=== PATIENT | male | born 1975 | race Two or more races ===

== ENCOUNTER 2019-01-01 08:19 | Emergency (ER) | payer OTHER ==
[~2019-01-01] VITALS: Ht 185.4 cm; Wt 79.4 kg
[2019-01-01] MEDS ORDERED: TETRACAINE 0.5% OPHTH SOLUTION 4ML BOTTLE. ONE (08:44)
[2019-01-01] MEDS ORDERED: FLUORESCEIN OPHTH TEST STRIP. ONE (08:44)
--- NOTE | 2019-01-01 09:00 | PHYS DOC ---
Adult General Chief Complaint Chief Complaint: EYE PROBLEMS HPI HPI Patient is a 43 year old male presents to ED complaining of left eye injury times one day ago. Patient states yesterday he was hit in the eye with a metal karina. Describes the pain as sharp. Rates the pain as 5/10. Feels like their is something in his eye. Associated symptoms include a little blurred vision. Patient does not wear contacts or glasses. Denies swelling, n/v, headache, fever, weakness, dizziness. Review of Systems Review of Systems Constitutional: Denies fever or chills [] Eyes: Complains of left eye redness and FB sensation. Denies change in visual acuity, redness, or eye pain [] HENT: Denies nasal congestion or sore throat [] Respiratory: Denies cough or shortness of breath [] Cardiovascular: No additional information not addressed in HPI [] GI: Denies abdominal pain, nausea, vomiting, bloody stools or diarrhea [] : Denies dysuria or hematuria [] Musculoskeletal: Denies back pain or joint pain [] Integument: Denies rash or skin lesions [] Neurologic: Denies headache, focal weakness or sensory changes [] All other systems were reviewed and found to be within normal limits, except as documented in this note. Current Medications Current Medications Current Medications Medications (Trade) Dose Ordered Sig/Matthew Start Time Stop Time Status Last Admin Dose Admin Fluorescein Sodium (Ful-Lauren) 1 strip 1X ONCE 01/01/19 09:30 01/01/19 09:32 DC 01/01/19 08:45 1 STRIP Tetracaine HCl (Tetracaine) 1 drop 1X ONCE 01/01/19 09:30 01/01/19 09:32 DC 01/01/19 08:45 1 DROP Allergies Allergies Allergies Coded Allergies Type Severity Reaction Last Updated Verified No Known Drug Allergies 01/01/19 No Physical Exam Physical Exam Constitutional: Well developed, well nourished, no acute distress, non-toxic appearance. [] HENT: Normocephalic, atraumatic, bilateral external ears normal, oropharynx m oist, no oral exudates, nose normal. Eyes: OD: 20/20, OS:20/70. B: 20/20 PERRLA, EOMI, mild conjunctival injection, no discharge. small corneal abrasion to center of eye. No foreign body. Normal IOP. No hyphema. [] Neck: Normal range of motion, no tenderness, supple, no stridor. [] Cardiovascular:Heart rate regular rhythm, no murmur [] Lungs & Thorax: Bilateral breath sounds clear to auscultation [] Skin: Warm, dry, no erythema, no rash. [] Neurologic: Alert and oriented X 3, normal motor function, normal sensory function, no focal deficits noted. [] Psychologic: Affect normal, judgement normal, mood normal. [] Current Patient Data Vital Signs Vital Signs Date Time Temp Pulse Resp B/P (MAP) Pulse Ox O2 Delivery O2 Flow Rate FiO2 01/01/19 09:31 98.8 16 16 159/67 (97) 99 Room Air 98.8 EKG EKG [] Radiology/Procedures Radiology/Procedures [] Course & Med Decision Making Course & Med Decision Making Pertinent Labs and Imaging studies reviewed. (See chart for details) []Patients pain improved with tetracaine drops in the ED. Normal IOP. Visual acuity within normal limits. Corneal abrasion seen on physical exam. We'll treat with antibiotic drops outpatient. Discussed follow-up with ophthalmology if symptoms persist. Provided contact information/education. Discussed reasons to return to the ED. Patient understands and agrees with plan. Dragon Disclaimer Dragon Disclaimer This electronic medical record was generated, in whole or in part, using a voice recognition dictation system. Departure Departure Impression: Primary Impression: Corneal abrasion Disposition: 01 HOME, SELF-CARE Condition: IMPROVED Referrals: WALLY PRICE MD Patient Instructions: Eye - Corneal Abrasion Scripts Ofloxacin (OCUFLOX) 5 Ml Drops 1 DROP EACHEYE QID for 5 Days, #5 ML Prov: RUTH BALLESTEROS 01/01/19 RUTH BALLESTEROS January 01, 2019 09:00
[2019-01-01] MEDS ORDERED: OFLO5DRO EACHEYE (09:17)
[2019-01-01] MEDS ORDERED: FLUORESCEIN OPHTH TEST STRIP. OS ONE (09:30)
[2019-01-01] MEDS ORDERED: TETRACAINE 0.5% OPHTH SOLUTION 4ML BOTTLE. OS ONE (09:30)
[2019-01-01 09:31] VITALS: BP 159/67
== END 2019-01-01 09:31 | disposition home or self-care (01) ==
LOC: ER 08:19
DX: S05.02XA Injury of conjunctiva and corneal abrasion without foreign body, left eye, initial encounter (principal); W22.8XXA Striking against or struck by other objects, initial encounter; Y93.89 Activity, other specified; Y92.89 Other specified places as the place of occurrence of the external cause; Y99.8 Other external cause status
CPT/HCPCS: 99283